=== PATIENT | female | born 1960 | race Two or more races ===

== ENCOUNTER 2022-09-22 22:54 | Inpatient (IN) | payer BC ==
[~2022-09-22] VITALS: Ht 170.2 cm; Wt 109.1 kg
[2022-09-23] MEDS ORDERED: IBUPROFEN 800 MG TAB PO ONE (02:30)
[2022-09-23] MEDS ORDERED: hydrALAZINE HCL 20 MG/ML VL IV PRN (04:30)
[2022-09-23] MEDS ORDERED: DOCUSATE SOD 100 MG CAP PO PRN (04:30)
[2022-09-23] MEDS ORDERED: ACETAMINOPHEN 325 MG TAB PO PRN (04:30)
[2022-09-23] MEDS ORDERED: MORPHINE SULFATE INJ 2 MG/ml SYRG IV PRN ×2 (04:30→05:45)
[2022-09-23] MEDS ORDERED: ONDANSETRON HCL 4 MG/2 ML VIAL IV PRN (04:30)
[2022-09-23] MEDS: SODIUM CHLORIDE 0.9% 1,000 ML IV SCH ×2 (04:58→21:10)
[2022-09-23 05:01] LABS: Basophils # (auto) 0.1 10 ^3/uL (0-0.2); Eosinophils # (auto) 0 10 ^3/uL (0-0.8); Eosinophils % (auto) 0.5 % (0.0-7.0); Hematocrit 42.5 % (36.0-46.0); Hemoglobin 14.1 g/dL (12.2-16.2); Lymphocytes # (auto) 1.8 10 ^3/uL (0.4-5.4); Lymphocytes % (auto) 20.9 % (10.0-50.0); Mean Corpuscular Hemoglobin 29.7 pg (28.0-32.0); Mean Corpuscular Hgb Conc. 33.1 g/dL (32.0-36.0); Mean Corpuscular Volume 89.6 fL (80.0-100.0); Monocytes # (auto) 0.6 10 ^3/uL (0-1.3); Monocytes % (auto) 7.2 % (0.0-12.0); Neutrophils # (auto) 6.1 10 ^3/uL (1.6-8.6); Neutrophils % (auto) 70.4 % (37.0-80.0); Nucleated Red Blood Cells % 0.1 %; Red Blood Cells 4.74 10^6/uL (4.0-5.20); Red Cell Distribution Width 14.8 % (11.8-14.3); White Blood Cell 8.7 10^3/uL (4.4-10.8)
[2022-09-23 05:17] LABS: INR 1.02 (0.9-1.15)
[2022-09-23 05:25] LABS: Albumin 3.2 g/dL (3.4-5.0); BUN/Creatinine Ratio 18.6 (10.0-20.0); Potassium 4.9 mmol/L (3.5-5.1)
[2022-09-23 05:28] LABS: Bilirubin, Total 0.4 mg/dL (0.2-1.0); Total Protein 8.6 g/dL (6.4-8.2)
[2022-09-23] MEDS ORDERED: NITROGLYCERIN 0.4 MG SL TAB SL PRN (05:45)
[2022-09-23] MEDS: ENOXAPARIN SOD 40 MG/0.4 ML SYRINGE SC SCH (10:08)
[2022-09-23] MEDS: IBUPROFEN 600 MG TAB PO PRN (14:27)
[2022-09-24] MEDS: IBUPROFEN 600 MG TAB PO PRN ×2 (00:36→07:51)
[2022-09-24 05:00] LABS: Basophils # (auto) 0 10 ^3/uL (0-0.2); Basophils % (auto) 0.9 % (0.0-2.0); Eosinophils # (auto) 0.3 10 ^3/uL (0-0.8); Eosinophils % (auto) 5.5 % (0.0-7.0); Hematocrit 40.9 % (36.0-46.0); Hemoglobin 13.6 g/dL (12.2-16.2); Lymphocytes # (auto) 2.1 10 ^3/uL (0.4-5.4); Lymphocytes % (auto) 39.4 % (10.0-50.0); Mean Corpuscular Hemoglobin 29.7 pg (28.0-32.0); Mean Corpuscular Hgb Conc. 33.2 g/dL (32.0-36.0); Mean Corpuscular Volume 89.4 fL (80.0-100.0); Monocytes # (auto) 0.6 10 ^3/uL (0-1.3); Monocytes % (auto) 10.7 % (0.0-12.0); Neutrophils # (auto) 2.3 10 ^3/uL (1.6-8.6); Neutrophils % (auto) 43.5 % (37.0-80.0); Nucleated Red Blood Cells % 0.2 %; Red Blood Cells 4.58 10^6/uL (4.0-5.20); Red Cell Distribution Width 14.2 % (11.8-14.3); White Blood Cell 5.2 10^3/uL (4.4-10.8)
[2022-09-24 05:39] LABS: Albumin 3.1 g/dL (3.4-5.0); BUN/Creatinine Ratio 19.4 (10.0-20.0); Bilirubin, Total 0.8 mg/dL (0.2-1.0); Calcium 8.3 mg/dL (8.5-10.1); Total Protein 7.4 g/dL (6.4-8.2)
[2022-09-24] MEDS: ENOXAPARIN SOD 40 MG/0.4 ML SYRINGE SC SCH (09:56)
[2022-09-24 13:10] VITALS: BP 164/82
[2022-09-24] MEDS ORDERED: HYDR-4902 PO (13:14)
== END 2022-09-24 13:45 | disposition home or self-care (01) | DRG 563 ==
LOC: ER 22:54 → OVERFLOW 09-23 05:36
PROVIDERS: ADMIT Nurse Practitioner Family; ATTEND Internal Medicine Pulmonary Disease
DX: S82.841A Displaced bimalleolar fracture of right lower leg, initial encounter for closed fracture (principal); I10 Essential (primary) hypertension; W01.0XXA Fall on same level from slipping, tripping and stumbling without subsequent striking against object, initial encounter; Z98.51 Tubal ligation status; Y93.89 Activity, other specified; Y99.8 Other external cause status; Y92.098 Other place in other non-institutional residence as the place of occurrence of the external cause
CPT/HCPCS: 36415; 71045; 73600; 80053; 85025; 85610; G0378

== ENCOUNTER 2022-10-03 08:23 | Inpatient (IN) | payer BC ==
[~2022-10-03] VITALS: Ht 170.2 cm; Wt 102.5 kg
[~2022-10-03 08:23] MED LIST: HYDR-4902 PO
[2022-10-03 08:48] LABS: Basophils # (auto) 0.1 10 ^3/uL (0-0.2); Basophils % (auto) 1.3 % (0.0-2.0); Eosinophils # (auto) 0.3 10 ^3/uL (0-0.8); Eosinophils % (auto) 6.4 % (0.0-7.0); Hematocrit 43.3 % (36.0-46.0); Hemoglobin 14.6 g/dL (12.2-16.2); Lymphocytes # (auto) 1.4 10 ^3/uL (0.4-5.4); Lymphocytes % (auto) 27.8 % (10.0-50.0); Mean Corpuscular Hgb Conc. 33.8 g/dL (32.0-36.0); Monocytes # (auto) 0.5 10 ^3/uL (0-1.3); Monocytes % (auto) 10.8 % (0.0-12.0); Neutrophils # (auto) 2.7 10 ^3/uL (1.6-8.6); Neutrophils % (auto) 53.7 % (37.0-80.0); Nucleated Red Blood Cells % 0.2 %; Red Blood Cells 4.87 10^6/uL (4.0-5.20); Red Cell Distribution Width 14.7 % (11.8-14.3)
[2022-10-03 09:04] LABS: INR 1.04 (0.9-1.15); Partial Thromboplastin Time 29.5 sec (24.6-33.4)
[2022-10-03 09:07] LABS: Albumin 3.1 g/dL (3.4-5.0); Calcium 9.2 mg/dL (8.5-10.1); Potassium 3.8 mmol/L (3.5-5.1)
[2022-10-03 09:12] LABS: Bilirubin, Total 0.7 mg/dL (0.2-1.0); Total Protein 8.2 g/dL (6.4-8.2)
[2022-10-03] MEDS ORDERED: cloNIDine HCL 0.1 MG TAB PO ONE (09:45)
[2022-10-03 10:35] LABS: Urine Bacteria FEW /hpf (None Seen); Urine Blood Negative /uL (Negative); Urine Hyaline Cast FEW /lpf (0 - 2); Urine Mucus FEW (None Seen); Urine Specific Gravity 1.015 (1.001-1.035); Urine WBC 11 /hpf (0 - 5)
[2022-10-03] MEDS ORDERED: MORPHINE SULFATE INJ 2 MG/ml SYRG IV PRN (11:15)
[2022-10-03] MEDS ORDERED: NITROGLYCERIN 0.4 MG SL TAB SL PRN (11:15)
[2022-10-03] MEDS ORDERED: ACETAMINOPHEN 325 MG TAB PO PRN (11:15)
[2022-10-03] MEDS ORDERED: METO-159 PO (11:24)
[2022-10-03] MEDS ORDERED: SODIUM CHLORIDE 0.9% 1,000 ML IV ONE (11:30)
[2022-10-03] MEDS: METOPROLOL TARTRATE 50 MG TAB PO SCH ×2 (12:26→22:00)
[2022-10-03 22:00] VITALS: BP 160/86
[2022-10-03] MEDS: HYDROcodone-ACET 5/325MG TAB PO PRN (23:27)
[2022-10-03 23:34] VITALS: BP 160/86
[2022-10-04] VITALS (14 sets, daily range): BP systolic 150–197; BP diastolic 75–116
[2022-10-04] MEDS: HYDROcodone-ACET 5/325MG TAB PO PRN ×2 (05:42→21:33)
[2022-10-04 06:00] LABS: Basophils # (auto) 0.1 10 ^3/uL (0-0.2); Basophils % (auto) 1.1 % (0.0-2.0); Eosinophils # (auto) 0.3 10 ^3/uL (0-0.8); Eosinophils % (auto) 6.5 % (0.0-7.0); Hematocrit 42.6 % (36.0-46.0); Hemoglobin 14.4 g/dL (12.2-16.2); Lymphocytes # (auto) 2.4 10 ^3/uL (0.4-5.4); Lymphocytes % (auto) 44.2 % (10.0-50.0); Mean Corpuscular Hemoglobin 30.3 pg (28.0-32.0); Mean Corpuscular Hgb Conc. 33.7 g/dL (32.0-36.0); Mean Corpuscular Volume 89.8 fL (80.0-100.0); Monocytes # (auto) 0.6 10 ^3/uL (0-1.3); Monocytes % (auto) 12.1 % (0.0-12.0); Neutrophils # (auto) 1.9 10 ^3/uL (1.6-8.6); Neutrophils % (auto) 36.1 % (37.0-80.0); Nucleated Red Blood Cells % 0.1 %; Red Blood Cells 4.74 10^6/uL (4.0-5.20); Red Cell Distribution Width 14.4 % (11.8-14.3); White Blood Cell 5.3 10^3/uL (4.4-10.8)
[2022-10-04 06:15] LABS: Albumin 2.7 g/dL (3.4-5.0); Calcium 8.4 mg/dL (8.5-10.1)
[2022-10-04 06:18] LABS: BUN/Creatinine Ratio 18.8 (10.0-20.0); Bilirubin, Total 0.6 mg/dL (0.2-1.0); Total Protein 7.6 g/dL (6.4-8.2)
[2022-10-04] MEDS: METOPROLOL TARTRATE 50 MG TAB PO SCH ×2 (09:56→21:33)
[2022-10-04] MEDS: PANTOPRAZOLE 40 MG TAB PO SCH (10:00)
[2022-10-04] MEDS ORDERED: hydrALAZINE HCL 20 MG/ML VL IV PRN ×2 (11:30→13:45)
[2022-10-04] MEDS ORDERED: ceFAZolin 1GM/50ML 100 ML IV ONE (11:51)
[2022-10-04] MEDS ORDERED: BUPIVACAINE 0.5% P/F INJ 10 ML VIAL ONE (12:10)
[2022-10-04] MEDS ORDERED: MIDAZOLAM HCL 2MG/2ML 2ml VIAL (1mg/ml) ONE ×2 (12:18→13:09)
[2022-10-04] MEDS ORDERED: fentaNYL CITRATE 100 MCG/2 ML VL ONE (12:18)
[2022-10-04] MEDS ORDERED: MORPHINE SULF PF 5 MG/10 ML VIAL ONE (12:26)
[2022-10-04] MEDS ORDERED: TETRACAINE 1% INJ 2 ML VIAL IJ ONE (12:27)
[2022-10-04] MEDS ORDERED: NALOXONE HCL 0.4 MG/ML VIAL IV PRN (13:45)
[2022-10-04] MEDS ORDERED: DexAMETHasone SOD PHOS 10MG/1ML VIAL INJ IV PRN (13:45)
[2022-10-04] MEDS ORDERED: ePHEDrine SULFATE 50 MG/ML AMP IV PRN (13:45)
[2022-10-04] MEDS ORDERED: HYDROmorphone HCL 2 MG/ML VL/or syr IV PRN (13:45)
[2022-10-04] MEDS ORDERED: MIDAZOLAM HCL 2MG/2ML 2ml VIAL (1mg/ml) IV PRN (13:45)
[2022-10-04] MEDS ORDERED: diphenhdrAMINE HCL 50 MG/1 ML VL IV PRN (13:45)
[2022-10-04] MEDS ORDERED: ONDANSETRON HCL 4 MG/2 ML VIAL IV PRN ×2 (13:45)
[2022-10-04] MEDS ORDERED: LABETALOL HCL 5 MG/ML 4ML SYRINGE IV PRN (13:45)
[2022-10-04] MEDS: LACTATED RINGER'S 1,000 ML IV SCH (17:41)
[2022-10-04] MEDS: ceFAZolin 1GM/50ML 50 ML IV SCH ×2 (17:41→21:34)
[2022-10-04] MEDS ORDERED: PROPOFOL 10 MG/ML 20 ML IV ONE (19:29)
[2022-10-04] MEDS ORDERED: PHENYLEPHRINE HCL 10 MG/ML VL IV ONE (19:29)
[2022-10-04] MEDS ORDERED: DexAMETHasone SOD PHOS 10MG/1ML VIAL INJ IV ONE (19:29)
[2022-10-04] MEDS: DOCUSATE SOD 100 MG CAP PO SCH (21:33)
[2022-10-04] MEDS ORDERED: hydrALAZINE HCL 20 MG/ML VL IV ONE (23:45)
[2022-10-05] VITALS (22 sets, daily range): BP systolic 101–181; BP diastolic 65–128
[2022-10-05] MEDS: HYDROcodone-ACET 5/325MG TAB PO PRN ×2 (01:55→06:25)
[2022-10-05] MEDS: LACTATED RINGER'S 1,000 ML IV SCH ×2 (01:56→10:30)
[2022-10-05] MEDS: ceFAZolin 1GM/50ML 50 ML IV SCH (03:13)
[2022-10-05] MEDS: hydrALAZINE HCL 20 MG/ML VL IV PRN ×2 (06:21→13:42)
[2022-10-05] MEDS: DOCUSATE SOD 100 MG CAP PO SCH (09:16)
[2022-10-05] MEDS: PANTOPRAZOLE 40 MG TAB PO SCH (09:17)
[2022-10-05] MEDS ORDERED: amLODIPine BESYLATE 5 MG TAB PO SCH (10:00)
[2022-10-05] MEDS: METOPROLOL TARTRATE 50 MG TAB PO SCH (10:00)
[2022-10-05] MEDS ORDERED: NIFEdipine ER 30 MG TAB PO ONE (16:00)
[2022-10-06] MEDS ORDERED: NIFEdipine ER 30 MG TAB PO SCH (10:00)
== END 2022-10-05 19:30 | disposition home or self-care (01) | DRG 494 ==
LOC: ER 08:23 → TELE 11:23 → TELE-WESTW 21:28
PROVIDERS: ADMIT Nurse Practitioner Family; ATTEND Internal Medicine
PROC: 0QSG04Z Reposition Right Tibia with Internal Fixation Device, Open Approach (ICD-10-PCS; 2022-10-04)
PROC: 0QSJ04Z Reposition Right Fibula with Internal Fixation Device, Open Approach (ICD-10-PCS; principal; 2022-10-04 12:25)
DX: S82.841A Displaced bimalleolar fracture of right lower leg, initial encounter for closed fracture (principal); I16.0 Hypertensive urgency; E66.9 Obesity, unspecified; I10 Essential (primary) hypertension; W18.39XA Other fall on same level, initial encounter; Y93.89 Activity, other specified; Z80.0 Family history of malignant neoplasm of digestive organs; Z82.49 Family history of ischemic heart disease and other diseases of the circulatory system; Y92.89 Other specified places as the place of occurrence of the external cause; Y99.8 Other external cause status; Z68.35 Body mass index [BMI] 35.0-35.9, adult
CPT/HCPCS: 36415; 73600; 76000; 80053; 81001; 85025; 85610; 85730; 86850; 86900; 86901; 87081; 93005; 93306; 96361; 96365; 96375; 97163; G0378; J0690; J1100; J2250; J2704; J3490